=== PATIENT | female | born 1990 | race Caucasian/White ===

== ENCOUNTER → 2017-12-01 | Emergency (ER) | payer OTHER ==
[~2017-12-01] VITALS: Ht 160 cm; Wt 65.8 kg
[~2017-12-01] MED LIST: LEVAQUIN750 MG PO; MEDROLPACK PO; TUSSI PRES-B L120 M1 PO; ULTRACET PO; URIN D.S. TABL1 EACH PO; ZITHROMAX TRI-500 MG PO
== END | disposition home or self-care (01) ==
LOC: ER 09:59
DX: N39.0 Urinary tract infection, site not specified (principal); G44.209 Tension-type headache, unspecified, not intractable; B34.9 Viral infection, unspecified